=== PATIENT | female | born 1950 | race Caucasian/White ===

== ENCOUNTER 2017-03-05 11:16 | Inpatient (IN) | payer MEDICARE ==
[2017-03-05 12:12] LABS: Hematocrit 41 % (35-47); Hemoglobin 13.5 g/dl (12.0-16.0); Mean Corpuscular HGB Conc 33 g/dl (31-36); Mean Corpuscular Hemoglobin 29 pg (27-31); Mean Corpuscular Volume 88 fL (80-97); Mean Platelet Volume 10 um3 (7.4-10.4); Red Blood Count 4.61 10^6/ul (4.0-5.4); Red Cell Distribution Width 14 % (10.5-15); White Blood Count 18.1 10^3/ul (3.5-10.8)
[2017-03-05 12:13] LABS: Add Diff/Slide Review? Slide Review Added; Comments Flag Yes
[2017-03-05 12:17] LABS: Urine Bacteria 1+ (Absent); Urine Bilirubin Negative (Negative); Urine Glucose 1+(50 mg/dL) (Negative); Urine Nitrite Negative (Negative)
--- NOTE | 2017-03-05 12:25 | RAD ---
HISTORY: Memory loss, confusion COMPARISONS: MRI dated March 24, 2016 TECHNIQUE: Multiple contiguous axial CT scans were obtained of the head without intravenous contrast. FINDINGS: HEMORRHAGE/INFARCT: There is no hemorrhage or acute infarct. MASSES/SHIFT: There is no mass or shift. EXTRA-AXIAL SPACES: There are no extra-axial fluid collections. SULCI AND VENTRICLES: The sulci and ventricles are normal in size and position for the patient's stated age. CEREBRUM: There are no focal parenchymal abnormalities. BRAINSTEM: There are no focal parenchymal abnormalities. CEREBELLUM: There are no focal parenchymal abnormalities. VESSELS: The vessels are grossly normal. PARANASAL SINUSES: The paranasal sinuses are clear. ORBITS: The orbits are unremarkable. BONES AND SOFT TISSUE: No bone or soft tissue abnormalities are noted. OTHER: None IMPRESSION: NO ACUTE INTRACRANIAL PATHOLOGY.
[2017-03-05 12:28] LABS: Troponin I 0.01 ng/mL (<0.04)
[2017-03-05 12:29] LABS: ALT 10 U/L (7-52); AST 22 U/L (13-39); Albumin 4.3 g/dL (3.2-5.2); Alkaline Phosphatase 84 U/L (34-104); BUN/Creatinine Ratio 11.6 (8-20); Blood Urea Nitrogen 8 mg/dL (6-24); CO2 Carbon Dioxide 23 mmol/L (22-32); Chloride 81 mmol/L (101-111); EGFR African American 109.5 (>60); EGFR Non-African American 85.1 (>60); Globulin 3.6 g/dL (2-4); Glucose 133 mg/dL (70-100); Potassium 3.3 mmol/L (3.5-5.0); Total Protein 7.9 g/dL (6.4-8.9)
[2017-03-05 12:31] LABS: Benzodiazepine Urine Screen None Detected (None Detect)
[2017-03-05] MEDS ORDERED: NS 0.9% 1000 ML* 1,000 ML IV ONE ×2 (12:32→12:55)
[2017-03-05 12:38] LABS: Anion Gap 9 mmol/L (2-11); Sodium 113 mmol/L (133-145)
[2017-03-05] MEDS ORDERED: HYPERTONIC IVPB ONE (12:41)
[2017-03-05] MEDS ORDERED: SODIUM CHLORIDE 3% IVPB ONE (12:41)
--- NOTE | 2017-03-05 12:53 | ED ---
Neurological HPI - HPI Summary HPI Summary: Patient presents to the ED from [facility] with N/V x 1 week and "deterioration." She notes that she has been declining, but is unable to elaborate. Symptoms aggravated by nothing, alleviated by nothing. She notes to vomiting 3x daily for over a week, unsteady on her feet, but denies falling. Denies hitting her head. Endorses confusion and memory loss. Eating and drinking OK, but continues to vomit. Denies chest pain, SOB, CHURCH, visual changes, back pain, urinary symptoms or abdominal pain. Denies constipation or diarrhea. Patient lives alone and does not work. Medications include Haldol, simvastatin and levothyroxine. She denies medication changes. VS stable. Pulse ox 100. Pulse 96. Orthostatics completed on arrival and OK. Denies diabetes history. Denies melena, hematemesis. Denies fevers, sweats or chills. Flu vaccine not UTD. - History of Current Complaint Chief Complaint: EDNauseaVomitDiarrh Stated Complaint: VOMITING Time Seen by Provider: 03/05/17 11:23 Hx Obtained From: Patient Hx From Patient Unobtainable Due To: Altered Mental Status Onset/Duration: Gradual Onset Timing: Constant Onset Severity: Severe Current Severity: Severe Pain Intensity: 0 Character: Confusion, Lethargy Syncope Context: Loss of Consciousness: No Associated Signs and Symptoms: Positive: Unsteady Gait, Memory Loss, Confusion TPA Considered: No - Additional Pertinent History Primary Care Physician: TYE - Allergy/Home Medications Allergies/Adverse Reactions: Allergies Allergy/AdvReac Type Severity Reaction Status Date / Time Clindamycin Allergy Diarrhea Verified 03/05/17 11:41 PMH/Surg Hx/FS Hx/Imm Hx Previously Healthy: Yes Endocrine/Hematology History: Reports: Hx Thyroid Disease Denies: Hx Diabetes Cardiovascular History: Reports: Hx Hypercholesterolemia Denies: Hx Hypertension, Hx Pacemaker/ICD Respiratory History: Denies: Hx Asthma, Hx Chronic Obstructive Pulmonary Disease (COPD) GI History: Denies: Hx Ulcer History: Denies: Hx Renal Disease Musculoskeletal History: Denies: Hx Arthritis, Hx Osteoporosis Sensory History: Denies: Hx Contacts or Glasses, Hx Hearing Aid Opthamlomology History: Denies: Hx Contacts or Glasses Neurological History: Denies: Hx Headaches Psychiatric History: Reports: Hx Inpatient Treatment, Hx Community Mental Health Tx, Hx of Violent Episodes Against Others, Other Psychiatric Issues/ Disorders Denies: Hx Eating Disorder, Hx Panic Disorder - Cancer History Hx Chemotherapy: No Hx Radiation Therapy: No Infectious Disease History: No Infectious Disease History: Denies: Hx Clostridium Difficile, Hx Hepatitis, Hx Human Immunodeficiency Virus (HIV), Hx of Known/Suspected MRSA, Hx Shingles, Hx Tuberculosis, Hx Known/ Suspected VRE, Hx Known/Suspected VRSA, History Other Infectious Disease, Traveled Outside the [place] in Last 30 Days - Family History Known Family History: Positive: Other Family History: no depression - Social History Occupation: Unemployed Lives: Alone Alcohol Use: Rare Hx Substance Use: No Substance Use Type: Reports: None Hx Tobacco Use: Yes Smoking Status (MU): Former Smoker Review of Systems Constitutional: Negative Negative: Fever, Chills, Fatigue Eyes: Negative Cardiovascular: Negative Respiratory: Negative Genitourinary: Negative Positive: no symptoms reported, see HPI Musculoskeletal: Negative Neurological: Other - confusion Psychological: Normal All Other Systems Reviewed And Are Negative: Yes Physical Exam Triage Information Reviewed: Yes Vital Signs On Initial Exam: Initial Vitals Temp Pulse Resp BP Pulse Ox 98.7 F 86 20 182/90 92 03/05/17 11:19 03/05/17 11:19 03/05/17 11:19 03/05/17 11:19 03/05/17 11:19 Vital Signs Reviewed: Yes Appearance: Positive: Well-Nourished, Ill-Appearing Skin: Positive: Skin Color Reflects Adequate Perfusion Head/Face: Positive: Normal Head/Face Inspection Eyes: Positive: EOMI, HUNTER, Conjunctiva Clear Neck: Positive: Nontender, No Lymphadenopathy Respiratory/Lung Sounds: Positive: Clear to Auscultation, Breath Sounds Present Cardiovascular: Positive: Normal, RRR, Pulses are Symmetrical in both Upper and Lower Extremities Musculoskeletal: Positive: Normal, Strength/ROM Intact Neurological: Positive: Speech Normal - oriented to person, place and time Psychiatric: Positive: Normal AVPU Assessment: Alert Diagnostics - Vital Signs Vital Signs Temp Pulse Resp BP Pulse Ox 03/05/17 11:56 190/115 03/05/17 11:55 173/102 03/05/17 11:41 24 03/05/17 11:40 95 03/05/17 11:19 98.7 F 86 20 182/90 92 - Laboratory Lab Results: Lab Results 1103/05/17 03/05/17 Range/Units 11:46 11:46 11:55 WBC (3.5-10.8) 10^3/ul RBC (4.0-5.4) 10^6/ul Hgb (12.0-16.0) g/dl Hct (35-47) % MCV (80-97) fL MCH (27-31) pg MCHC (31-36) g/dl RDW (10.5-15) % Plt Count (150-450) 10^3/ul MPV (7.4-10.4) um3 Neut % (Auto) (38-83) % Lymph % (Auto) (25-47) % [place] % (Auto) (1-9) % Eos % (Auto) (0-6) % Baso % (Auto) (0-2) % Absolute Neuts (auto) (1.5-7.7) 10^3/ul Absolute Lymphs (auto) (1.0-4.8) 10^3/ul Absolute Monos (auto) (0-0.8) 10^3/ul Absolute Eos (auto) (0-0.6) 10^3/ul Absolute Basos (auto) (0-0.2) 10^3/ul Absolute Nucleated RBC 10^3/ul Nucleated RBC % Sodium 113 L* (133-145) mmol/L Potassium 3.3 L (3.5-5.0) mmol/L Chloride 81 L (101-111) mmol/L Carbon Dioxide 23 (22-32) mmol/L Anion Gap 9 (2-11) mmol/L BUN 8 (6-24) mg/dL Creatinine 0.69 (0.51-0.95) mg/dL Est GFR ( Amer) 109.5 (>60) Est GFR (Non-Af Amer) 85.1 (>60) BUN/Creatinine Ratio 11.6 (8-20) Glucose 133 H (70-100) mg/dL Lactic Acid (0.5-2.0) mmol/L Calcium 10.0 (8.6-10.3) mg/dL Magnesium 2.0 (1.9-2.7) mg/dL Total Bilirubin 1.80 H (0.2-1.0) mg/dL AST 22 (13-39) U/L ALT 10 (7-52) U/L Alkaline Phosphatase 84 (34-104) U/L Ammonia (16-53) mol/L Troponin I 0.01 (<0.04) ng/mL Total Protein 7.9 (6.4-8.9) g/dL Albumin 4.3 (3.2-5.2) g/dL Globulin 3.6 (2-4) g/dL Albumin/Globulin Ratio 1.2 (1-3) TSH Pending Urine Color Yellow Urine Appearance Cloudy Urine pH 6.0 (5-9) Ur Specific [place] 1.009 L (1.010-1.030) Urine Protein 3+(>=500 mg/dl) H (Negative) Urine Ketones 1+ H (Negative) Urine Blood 2+ H (Negative) Urine Nitrate Negative (Negative) Urine Bilirubin Negative (Negative) Urine Urobilinogen Negative (Negative) Ur Leukocyte Esterase 1+ H (Negative) Urine WBC (Auto) 3+(>20/hpf) H (Absent) Urine RBC (Auto) Trace(0-2/hpf) (Absent) Ur Squamous Epith Cells Present H (Absent) Urine Bacteria 1+ H (Absent) Hyaline Casts Present H (Absent) Urine Glucose 1+(50 mg/dl) H (Negative) Urine Opiates Screen None detected (None Detect) Ur Barbiturates Screen None detected (None Detect) Ur Phencyclidine Scrn None detected (None Detect) Ur Amphetamines Screen None detected (None Detect) U Benzodiazepines Scrn None detected (None Detect) Urine Cocaine Screen None detected (None Detect) U Cannabinoids Screen None detected (None Detect) Serum Alcohol Pending 03/05/17 03/05/17 03/05/17 Range/Units 11:55 11:55 11:55 WBC 18.1 H (3.5-10.8) 10^3/ul RBC 4.61 (4.0-5.4) 10^6/ul Hgb 13.5 (12.0-16.0) g/dl Hct 41 (35-47) % MCV 88 (80-97) fL MCH 29 (27-31) pg MCHC 33 (31-36) g/dl RDW 14 (10.5-15) % Plt Count 267 (150-450) 10^3/ul MPV 10 (7.4-10.4) um3 Neut % (Auto) 82.7 (38-83) % Lymph % (Auto) 6.6 L (25-47) % [place] % (Auto) 9.8 H (1-9) % Eos % (Auto) 0.1 (0-6) % Baso % (Auto) 0.8 (0-2) % Absolute Neuts (auto) 15.0 H (1.5-7.7) 10^3/ul Absolute Lymphs (auto) 1.2 (1.0-4.8) 10^3/ul Absolute Monos (auto) 1.8 H (0-0.8) 10^3/ul Absolute Eos (auto) 0 (0-0.6) 10^3/ul Absolute Basos (auto) 0.1 (0-0.2) 10^3/ul Absolute Nucleated RBC 0 10^3/ul Nucleated RBC % 0 Sodium (133-145) mmol/L Potassium (3.5-5.0) mmol/L Chloride (101-111) mmol/L Carbon Dioxide (22-32) mmol/L Anion Gap (2-11) mmol/L BUN (6-24) mg/dL Creatinine (0.51-0.95) mg/dL Est GFR ( Amer) (>60) Est GFR (Non-Af Amer) (>60) BUN/Creatinine Ratio (8-20) Glucose (70-100) mg/dL Lactic Acid 2.4 H* (0.5-2.0) mmol/L Calcium (8.6-10.3) mg/dL Magnesium (1.9-2.7) mg/dL Total Bilirubin (0.2-1.0) mg/dL AST (13-39) U/L ALT (7-52) U/L Alkaline Phosphatase (34-104) U/L Ammonia 45 (16-53) mol/L Troponin I (<0.04) ng/mL Total Protein (6.4-8.9) g/dL Albumin (3.2-5.2) g/dL Globulin (2-4) g/dL Albumin/Globulin Ratio (1-3) TSH Urine Color Urine Appearance Urine pH (5-9) Ur Specific [place] (1.010-1.030) Urine Protein (Negative) Urine Ketones (Negative) Urine Blood (Negative) Urine Nitrate (Negative) Urine Bilirubin (Negative) Urine Urobilinogen (Negative) Ur Leukocyte Esterase (Negative) Urine WBC (Auto) (Absent) Urine RBC (Auto) (Absent) Ur Squamous Epith Cells (Absent) Urine Bacteria (Absent) Hyaline Casts (Absent) Urine Glucose (Negative) Urine Opiates Screen (None Detect) Ur Barbiturates Screen (None Detect) Ur Phencyclidine Scrn (None Detect) Ur Amphetamines Screen (None Detect) U Benzodiazepines Scrn (None Detect) Urine Cocaine Screen (None Detect) U Cannabinoids Screen (None Detect) Serum Alcohol Result Diagrams: 03/05/17 11:55 03/05/17 11:55 Lab Statement: Any lab studies that have been ordered have been reviewed, and results considered in the medical decision making process. Course/Dx - Course Course Of Treatment: On arrival, patient appears to be obtunded and is unable to answer direct questions regarding her health. On exam, she states she has been "declining." Labs obtained and spoke with Dr. Dahl (from [facility]) who sent her here who described confusion and concern for metabolic or cranial abnormalities. Other pathologies not excluded. Labs with 18 WBC and 113 NA for severe hyponatremia and possible sepsis. Although, and afebrile. BP is elevated at 192/118. Hypertensive emergency as well as hyponatremic emergency. 113 NA hyponatremia appears to be acute. Previous NA levels WNL. Agressive therapy for normalized values is warranted. ICU called at 12:30pm and provider spoke with Dr. Carrion who agrees to see patient. Brain CT obtained and IMPRESSION: NO ACUTE INTRACRANIAL PATHOLOGY. 1L NS given to patient awaiting admission. Hyponatremia possible reaction from psychosis with extreme polydipsia. Urine obtained. Awaiting results. - Differential Dx Differential Diagnoses Neuro: Positive: Hypovolemia, Other - polydipsia, obtunded, confusion, hypnatremia - Diagnoses Provider Diagnoses: Hyponatremia Discharge - Discharge Plan Condition: Stable Disposition: ADMITTED TO [facility]
[2017-03-05 12:55] LABS: Alcohol < 10 mg/dL (<10)
[2017-03-05] MEDS ORDERED: Sodium Chloride 3% HYPERTONIC* 500 ML IVPB ONE (13:03)
[2017-03-05 13:10] LABS: TSH (Thyroid Stimulating Horm) 1.82 mcIU/mL (0.34-5.60)
[2017-03-05] MEDS ORDERED: NS 0.9% 1000 ML* 1,000 ML IV SCH (13:15)
[2017-03-05] MEDS ORDERED: cefTRIAXone VIAL(*) 1,000 MG in NS 0.9% 50 ML* 50 ML IVPB ONE (13:30)
--- NOTE | 2017-03-05 13:34 | HP ---
H&P (Free Text) History and Physical: CRITICAL CARE MEDICINE DATE: 03/05/17 TIME: 1300 PRIMARY CARE PROVIDER: Luis Maunel. REFERRING PROVIDER: Stefany PHELAN. REASON/CHIEF COMPLAINT: metabolic encephalopathy HISTORY OF PRESENT ILLNESS: 66 F, not feeeling righ t for last 1 week. She explains to me she just didn't feel well. [place] off. Did admit to drinking lots of water, and even vomiting water. Nausea and vomiting persisted and she presented to ED. Head CT neg. Encepahlopathy apparent. Na 113. wbc 18k. REVIEW OF SYSTEMS: As per HPI. No h/o htn. No change in urination. PAST MEDICAL HISTORY: As per HPI. hypoT4, anxiety, MEDICATIONS: Reviewed. Atorvastatin, levothyroxine, haldol (doses unconfirmed) ALLERGIES: Clindamycin SOCIAL HISTORY: Reviewed. Lives alone. Retired, director social. FAMILY HISTORY: Noncontributory at present. PHYSICAL EXAM: Vital Signs: Reviewed. SBP 180s. HR 80s. Neurologic: awake, communicating, altered but orientable. nonfocal. no asterxis. No pronator drift. NEUMANN. HEENT: eomi, perrl, tongue protrudes midline. mm dry. poor dentition Cardiovascular: reg S1 S2; no bruit Respiratory: clear bl Abdomen: obese, soft, nt Extremities: warm. Access: 1 piv LABS: Reviewed. Na 113. Wbc 18k. IMAGING: Reviewed. CT head without acute dz MEDICATIONS: Reviewed. ASSESSMENT: 66 F Metabolic encephalopathy Hypovolemic>euvolemic hyponatremia Sepsis sec to uti ?Pres PLAN: Neurologic: Metabolic encephalopathy sec to hypovolemic >euvolemic hyponatremia , but likely with siadh component as well. Have a concern for potential pres as well, but no mri yet, as best to correct metabolics first and allow bp to equilibrate and then can consider MRI later if needed. Cardiovascular: Perfusing. A little intravascularly dry, as well as interstially and cellularly, more deplete from Na>H2O. NS 2 L bolus and supplement low dose 3% with 0.9% NS to allow equilibration if still with SIADH contributions. May then need to blunt htn. Respiratory: stable. no O2 needs. Gastrointestinal: No abd pain. antiemetics. no indication for imagging needs at this time. Renal/Metabolic: Start with bolus of NS and then may have to run a touch of 3% along with NS if she has residual lingering component of SIADH (perhaps sec to n /v moreso). She has been on haldol for awhile but this could possible contribute to Hypo Na too and can be followed upon. LA elevated from being intravascularly dry at present and should correct easily enough with IVF, but will need repeat to ensure clearance. Replete K. Hopefully Cl avid. May need fluid restriction. Infectious Disease: May have uti and can tx for low grade sepsis sec to uti. bc ordered. Start C3. Hematology: stable. hsq Endocrine: check TSH and continue her T4 and check cortisol. Musculoskeletal: oob as able. Psych/Social: will eval her haldol needs Supportive and preventative care as ordered. Vaccine: eval when capacitance improved. SUP: po VTE prophylaxis: heparin Disposition: ICU Code Status: Full Critical Care Time: 41min Lina Carrion DO
[2017-03-05] MEDS ORDERED: Acetaminophen TAB* 325 MG PO PRN (13:35)
[2017-03-05] MEDS ORDERED: Ondansetron INJ* 2 MG/ML VIAL IV PRN (13:36)
[2017-03-05] MEDS ORDERED: Haloperidol INJ IV/IM* 5 MG/ML AMP IV SLOW PU PRN (13:37)
[2017-03-05] MEDS ORDERED: hydrALAZINE IV* 20 MG/ML VIAL IV SLOW PU PRN (14:07)
[2017-03-05] MEDS ORDERED: LORazepam INJ* 2 MG/ML 1 ML VIAL IV PUSH PRN (14:13)
[2017-03-05] MEDS: Heparin VIAL(*) 5000 UNITS/ML VIAL (FIVE THOUSAND) SUBCUT SCH ×2 (15:28→21:59)
[2017-03-05 22:37] LABS: BUN/Creatinine Ratio 10.9 (8-20); Calcium 9.5 mg/dL (8.6-10.3); EGFR African American 119.4 (>60); EGFR Non-African American 92.8 (>60); Potassium 3.4 mmol/L (3.5-5.0)
[2017-03-05] MEDS ORDERED: Potassium Chlor TAB* 20 MEQ TAB.ER PO ONE (23:50)
[2017-03-06 04:22] LABS: Hematocrit 38 % (35-47); Mean Corpuscular HGB Conc 34 g/dl (31-36); Mean Corpuscular Hemoglobin 30 pg (27-31); Mean Corpuscular Volume 88 fL (80-97); Mean Platelet Volume 10 um3 (7.4-10.4); Red Blood Count 4.35 10^6/ul (4.0-5.4); Red Cell Distribution Width 14 % (10.5-15); White Blood Count 11.2 10^3/ul (3.5-10.8)
[2017-03-06 04:37] LABS: BUN/Creatinine Ratio 9.9 (8-20); Calcium 9.2 mg/dL (8.6-10.3); EGFR African American 105.9 (>60); EGFR Non-African American 82.4 (>60); Potassium 3.6 mmol/L (3.5-5.0)
[2017-03-06] MEDS: Heparin VIAL(*) 5000 UNITS/ML VIAL (FIVE THOUSAND) SUBCUT SCH ×2 (05:36→13:14)
[2017-03-06] MEDS ORDERED: NS 0.9% w/ 40 Meq KCL 1000 ML* 1,000 ML IV SCH (09:00)
[2017-03-06] MEDS ORDERED: amLODIPine TAB* 5 MG PO SCH (09:00)
[2017-03-06] MEDS ORDERED: Metoprolol Tartrate IV* 1 MG/ML 5 ML VIAL IV ONE (10:00)
[2017-03-06] MEDS ORDERED: EPINEPHrine SYR 0.1 MG/ML* (1:10,000) SYRINGE ONE ×5 (10:22→10:37)
[2017-03-06] MEDS ORDERED: Succinylcholine* 20 MG/ML 10 ML VIAL ONE (10:24)
[2017-03-06] MEDS ORDERED: Norepinephrine 16MCG/ML IVPRE* 4,000 MCG/250 ML BAG IV ONE (11:26)
[2017-03-06] MEDS ORDERED: NS 0.9% 1000 ML* 3,000 ML IV ONE (11:43)
--- NOTE | 2017-03-06 11:57 | PN ---
Progress Note - Progress Note Date of Service: 03/06/17 Note: CRITICAL CARE MEDICINE DATE: 03/05/17 TIME: 935-1000 SUBJECTIVE: Patient seen and examined this am with nursing as well. Pt bp still up but stablish. pt remembers I am the doctor but not my name. She does recognizes she doesn't feel well and mentation is still off some. PHYSICAL EXAM: Vital Signs: Reviewed. SBP 180s. HR 80s. Neurologic: awake, communicating, She remains nonfocal. HEENT: eomi, perrl, tongue protrudes midline. mmm Cardiovascular: reg S1 S2; HR a little up. no m Respiratory: mild rhnochi at bases. RR up slightly. on ra but will place on 2L to see if any sx relief. Abdomen: obese, soft, nt, no masses Extremities: warm. Access: piv LABS: Reviewed. Na 125. Wbc down to 11k. IMAGING: Reviewed. MEDICATIONS: Reviewed. ASSESSMENT: 66 F Metabolic encephalopathy - mildly improved. Hypovolemic>euvolemic hyponatremia; question Sepsis sec to uti - improved wbc. ?Pres still in ddx PLAN: Neurologic: Metabolic encephalopathy. improved. still would quesiton pres but don't see need for urgent mri. Need to just blunt bp further today and as explained to pt, would consider MRI tomorrow if metabolics better and yet if mentation not. Cardiovascular: Perfusing but midl increase in sympathetics this am. less fluid but maintain on. Given norvasc this am and give an additional 5mg. Prn hydralazine. see where bp levels out. can give one dose lopressor to blunt sympathetics as well this am until norvasc po can absorb. Respiratory: supplemental O2 sec to basilar atelectasis and to alleviate sx Gastrointestinal: No abd pain. antiemetics prn. Renal/Metabolic: Improved dynamics. f/u outs. Infectious Disease: tx for uti on C3 and f/u cx. Hematology: stable. hsq Endocrine: TSH ok. cortisol was high. Musculoskeletal: oob today Psych/Social: prn haldol Supportive and preventative care as ordered. Vaccine: eval when capacitance improved. SUP: po VTE prophylaxis: heparin Disposition: ICU today; potential floor later today or tomorrow Code Status: Full Critical Care Time: 25min FMichelle Carrion DO
[2017-03-06] MEDS ORDERED: Norepinephrine 16MCG/ML IVPRE* 4,000 MCG/250 ML BAG IV SCH (12:00)
--- NOTE | 2017-03-06 12:15 | PN ---
Progress Note - Progress Note Date of Service: 03/06/17 Note: CRITICAL CARE MEDICINE DATE: 03/06/17 TIME: 1020 Pt with abrupt change in condition. Called by nursing sec to acute unresponsiveness and seizure like activity. On arrival pt with agonal breathing. No myoclonus but eyes were deviated down and right. Bag ventilation. HR on montitor was SR 68 and holding. Weak carotid pulse. Cold and diaphoretic. BP unobtainable. Bag ventilation but still not responding. CPR initiated. with epi given. See code sheet for specifics. Remained pea throughout the code. IVF lorna instilled. IO utilized but infiltrative on left tibial and R IO placed. epi at 3-5min integers for the 25 min code. 4 bicarb total utilized. Intubated with 7.5 ett by myself. Bedside US from myself showed weak activity and underfilled LV. Workign diagnosis was primary cardiac event. R heart not enlarged. Aorta prominently seen on echo but poor quality during cpr. Pt with WCT towards end of code and defibrillated at 200J for what it was worth. Remained pea though a bit more spont activity on bedside us. CPR held at the time and about to call code when pt had ROSC and therefore maintained with bag ventilation and IVF. Held off on further cpr. Now with better bedside us evaluation it was quite apparent that pt was having a massive aortic dissection with clot burden in aorta and false lumen developed. From what images I could obtain this certainly seemed like a DeBakey type I. Levophed was started at 30mcg/min and IVF continued however outcome looked dismal. Placed on MV. Son reached via the phone and expressed understanding of the events and poor prognosis. He was arranging for further family to come. He understood that if pt had repeat cardiac arrest that we would cess efforts. If she could stabilize we would eval with CT scan and see if any further heroics indicated including transfer but that these potentials seemed unlikely. AT first bp was obtainable in left arm, not right now, But she continued to decline. Bedside us showing enlarging left pleural effusion and clinical mottling of flanks and R >L LE. PEA ensued and pt passed at 12:15pm. Family friends and ex- arrived shortly after and updated. They will discuss potential autopsy etc with rest of the family. Critical Care Time: 50min, excluding procedures. Lina Carrion, DO
[2017-03-06 12:44] VITALS: BP 77/63
[2017-03-06] MEDS ORDERED: cefTRIAXone VIAL(*) 1,000 MG in NS 0.9% 50 ML* 50 ML IVPB SCH (13:30)
--- NOTE | 2017-03-06 13:53 | DS ---
CRITICAL CARE MEDICINE DISCHARGE SUMMARY ADMISSION DATE: 03/05/2017 ICU ADMISSION DATE: 03/05/2017 ICU DISCHARGE DATE: 03/06/2017 PRIMARY CARE PROVIDER: Demi Issa MD. REFERRING PHYSICIAN: Stefany PHELAN. DIAGNOSIS: 1. Acute DeBakey type 1 aortic dissection. 2. Cardiac arrest secondary to above and hypovolemic shock. 3. Acute hypoxic respiratory failure secondary to above requiring intubation and mechanical ventilation. 4. Metabolic encephalopathy. 5. Symptomatic hypovolemic hyponatremia. 6. 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 7. Sepsis secondary to urinary tract infection. 8. History of hyperlipidemia. 9. History of anxiety disorder. 10. History of hypothyroidism. 11. Hypertension. MEDICATIONS AT DISCHARGE: None. HOSPITAL COURSE: 66 year old female admitted with metabolic encephalopathy secondary to hyponatremia with nausea associated syndrome of inappropriate antidiuretic hormone. Placed on normal saline and small amount of hypertonic see improved slightly and sodium improved. She was treated for potential sepsis secondary to urinary tract infection. Leukocytosis improved. Blood pressure was elevated during her stay and began low dose treatment. She was tolerating until an abrupt change in condition with unresponsiveness and pulseless electrical activity ensuing. ACLS for about 25 minutes until return of circulation. Supported but prognosis grim. Diagnosed with acute aortic dissection. Family updated and patient succumbed to her disease process. Discussed with family who would like option of autopsy; case declined from router operator standpoint. DISPOSITION: . Lina Carrion DO
--- NOTE | 2017-03-06 14:03 | PN ---
Progress Note - Progress Note Date of Service: 03/06/17 Note: CRITICAL CARE MEDICINE PROCEDURE NOTE DATE: 03/06/17 TIME: 10:25 SERVICE: Critical Care Medicine LOCATION OF PROCEDURE: ICU PROCEDURE: Endotracheal intubation PROCEDURALIST: Dr. Carrion Consent obtain: No, procedure performed emergently Time out held: Not indicated INDICATION: Cardiac arrest PROCEDURE: Bag mask ventilation needing advanced airway with ongoing cpr. Patient in supine position. Glidescope #3 inserted with Grade 2 view obtained. 7.5 endotracheal tube inserted to 23cm lip. Good chest rise with breath sounds appreciated in bilaterally lung rivera. EtCO2 + color change. Portable chest x-ray pending. Ongoing cpr throughout. Lina Carrion DO
[2017-03-07] MEDS ORDERED: amLODIPine TAB* 5 MG PO ONE (10:00)
== END 2017-03-06 14:21 | disposition expired | DRG 871 ==
LOC: ED 11:16 → ICU 13:00
PROVIDERS: ADMIT Internal Medicine Critical Care Medicine; ATTEND Internal Medicine Critical Care Medicine
PROC: 0BH17EZ Insertion of Endotracheal Airway into Trachea, Via Natural or Artificial Opening (ICD-10-PCS; principal; 2017-03-06)
PROC: 5A1935Z Respiratory Ventilation, Less than 24 Consecutive Hours (ICD-10-PCS; 2017-03-06)
DX: A41.9 Sepsis, unspecified organism (principal); I71.01 Dissection of thoracic aorta; J96.01 Acute respiratory failure with hypoxia; G93.41 Metabolic encephalopathy; E22.2 Syndrome of inappropriate secretion of antidiuretic hormone; E87.1 Hypo-osmolality and hyponatremia; N39.0 Urinary tract infection, site not specified; J98.11 Atelectasis; I46.8 Cardiac arrest due to other underlying condition; E86.1 Hypovolemia; E78.5 Hyperlipidemia, unspecified; F41.9 Anxiety disorder, unspecified; E03.9 Hypothyroidism, unspecified; I10 Essential (primary) hypertension; Z79.899 Other long term (current) drug therapy; Z88.1 Allergy status to other antibiotic agents
CPT/HCPCS: 36415; 70450; 80048; 80053; 80307; 80320; 81003; 81015; 82140; 82533; 83605; 83735; 83935; 84300; 84443; 84484; 85025; 87040; 87086; 87502; 87641; 92950; 93005; 94002; 99213; A9270-GY; G0463; G0480; J0171; J0330; J0360; J0696; J1644; J2405